=== PATIENT | male | born 1970 | race Caucasian/White ===

== ENCOUNTER 2018-04-08 05:17 | Emergency (ER) | payer MEDICARE ==
[~2018-04-08] VITALS: Ht 175.3 cm; Wt 113.6 kg
[2018-04-08 05:25] VITALS: Ht 175.3 cm; Wt 113.6 kg
[2018-04-08] MEDS ORDERED: HALDOL5 MG (05:25)
[2018-04-08] MEDS ORDERED: PAXIL20 MG PO (05:26)
[2018-04-08] MEDS ORDERED: OMEPRAZOLE20 M1 PO (05:26)
[2018-04-08] MEDS ORDERED: CLEOCIN HCL300 MG PO (05:48)
[2018-04-08] MEDS ORDERED: DIFLUCAN200 MG PO (05:48)
[2018-04-08] MEDS ORDERED: KEFLEX500 MG PO (05:48)
[2018-04-08 06:30] LABS: ALBUMIN 3.4 g/dL (3.4-5.0); ALKALINE PHOSPHATASE 86 U/L (46-116); ALT (SGPT) 28 U/L (10-68); BILIRUBIN - TOTAL 0.44 mg/dL (0.2-1.3); C-REACTIVE PROTEIN 0.7 mg/dL (0.0-0.9); CALC OSMOLALITY 280 mosm/kg (275-300); CALCIUM 8.6 mg/dL (8.5-10.1); CARBON DIOXIDE 28.8 mmol/L (21.0-32.0); CHLORIDE - SERUM 104 mmol/L (98-107); CREATININE - SERUM 0.9 mg/dL (0.6-1.3); GLUCOSE 92 mg/dL (74-106); POTASSIUM - SERUM 3.3 mmol/L (3.5-5.1); PROTEIN - SERUM 7.1 g/dL (6.4-8.2); SODIUM 142 mmol/L (136-145); UREA NITROGEN 7 mg/dL (7-18); eGFR NON AFRICAN AMERICAN > 90 mL/min (90-120)
[2018-04-08 06:54] LABS: BASOPHILS 0.3 % (0-2); EOSINOPHILS 1.9 % (0-7); HEMATOCRIT 62.1 % (42.0-54.0); HEMOGLOBIN 21.2 g/dL (13.5-17.5); IMMATURE GRANULOCYTES 0.2 % (0-5); LYMPHOCYTES 20.1 % (15-50); MCH 28.4 pg (26.0-34.0); MCHC 34.1 g/dL (31.0-37.0); MCV 83.2 fL (80.0-100.0); MEAN PLATELET VOLUME 11.3 fL (7.4-10.4); MONOCYTES 5.8 % (2-11); NEUTROPHILS 71.7 % (40-80); PLATELET COUNT 118 10x3/uL (130-400); RDW 15.1 % (11.5-14.5); WBC 12.2 10x3/uL (4.8-10.8)
[2018-04-08 06:57] LABS: RBC 7.46 10x6/uL (4.20-6.10)
[2018-04-08 08:05] VITALS: BP 134/60
== END 2018-04-08 08:06 | disposition home or self-care (01) ==
LOC: D.ER 05:17
PROVIDERS: Family Medicine
DX: B35.3 Tinea pedis (principal); L03.116 Cellulitis of left lower limb; A46 Erysipelas